=== PATIENT | male | born 1970 | race Caucasian/White ===

== ENCOUNTER 2016-11-18 02:24 | Emergency (ER) | payer OTHER ==
[~2016-11-18] VITALS: Ht 188 cm; Wt 77.1 kg
[2016-11-18 02:33] VITALS: BP 140/90
[2016-11-18 02:58] LABS: KETONES,URINE NEGATIVE (NEGATIVE); LEUKOCYTE ESTERASE ,URINE NEGATIVE (NEGATIVE); PH,URINE 5.5 (5.0-8.0)
[2016-11-18 03:01] LABS: ADD UA MICROSCOPIC YES
[2016-11-18 03:03] LABS: ADD URINE CULTURE NO; RBC,URINE 81-100 /HPF (0-2); WBC,URINE 0-2 /HPF (0-3)
== END 2016-11-18 03:44 | disposition home or self-care (01) ==
LOC: ER 02:24
DX: N48.30 Priapism, unspecified (principal); I10 Essential (primary) hypertension
CPT/HCPCS: 81001; 99283; A4606; Z7610; 81000-TC